=== PATIENT | female | born 1960 | race African-American/Black ===

== ENCOUNTER 2019-02-03 14:26 | Emergency (ER) | payer MEDICAID ==
[~2019-02-03] VITALS: Ht 172.7 cm; Wt 105.0 kg
[2019-02-03 14:48] VITALS: BP 164/86
== END 2019-02-03 19:05 | disposition home or self-care (01) ==
LOC: ER 14:26
DX: H92.01 Otalgia, right ear (principal); M25.511 Pain in right shoulder; M25.562 Pain in left knee; F12.10 Cannabis abuse, uncomplicated; F31.9 Bipolar disorder, unspecified; V19.9XXA Pedal cyclist (driver) (passenger) injured in unspecified traffic accident, initial encounter; Y93.89 Activity, other specified; Y92.488 Other paved roadways as the place of occurrence of the external cause
CPT/HCPCS: 73030; 73562; 99283

== ENCOUNTER 2023-10-06 08:33 | Emergency (ER) | payer MEDICARE, MEDICAID ==
[~2023-10-06] VITALS: Ht 175.3 cm; Wt 86.0 kg
[2023-10-06 08:36] VITALS: O2SAT 99
[2023-10-06] MEDS ORDERED: ACETAMINOPHEN 325MG TABLET PO ONE (09:00)
[2023-10-06 09:57] VITALS: TEMP 98.8
[2023-10-06] MEDS ORDERED: HYDROCODONE/ACETAMINOPHEN 5/325MG TABLET PO ONE (10:00)
[2023-10-06] MEDS ORDERED: T3 PO (10:01)
[2023-10-06] MEDS ORDERED: IBUP-2029 MT (10:01)
[2023-10-06 10:12] VITALS: BP 132/73; PULSE 67; RESP 15
== END 2023-10-06 10:28 | disposition home or self-care (01) ==
LOC: ER 08:33
DX: S42.352A Displaced comminuted fracture of shaft of humerus, left arm, initial encounter for closed fracture (principal); F31.9 Bipolar disorder, unspecified; I10 Essential (primary) hypertension; F20.9 Schizophrenia, unspecified; F12.90 Cannabis use, unspecified, uncomplicated; W18.30XA Fall on same level, unspecified, initial encounter; Y93.89 Activity, other specified; Y92.89 Other specified places as the place of occurrence of the external cause; Y99.8 Other external cause status
CPT/HCPCS: 73030; 73080; 99284; A4565

== ENCOUNTER 2024-08-18 13:20 | Emergency (ER) | payer MEDICARE, MEDICAID ==
[~2024-08-18] VITALS: Ht 172.7 cm; Wt 90.0 kg
[~2024-08-18 13:20] MED LIST: IBUP-2029 MT; T3 PO
[2024-08-18 13:23] VITALS: O2SAT 97
[2024-08-18] MEDS ORDERED: IBUP-2029 MT (16:34)
[2024-08-18] MEDS: HYDROCODONE/ACETAMINOPHEN 5/325MG TABLET PO ONE (16:51)
[2024-08-18 16:52] VITALS: BP 127/71; PULSE 85; RESP 16; TEMP 37.16964; O2SAT 98
== END 2024-08-18 16:54 | disposition home or self-care (01) ==
LOC: ER 13:20
DX: R07.89 Other chest pain (principal); F12.10 Cannabis abuse, uncomplicated; I10 Essential (primary) hypertension; F31.9 Bipolar disorder, unspecified; Z68.30 Body mass index [BMI] 30.0-30.9, adult; Z86.59 Personal history of other mental and behavioral disorders
CPT/HCPCS: 71100; 99283